=== PATIENT | female | born 1965 | race Caucasian/White ===

== ENCOUNTER 2020-08-06 11:57 | Emergency (ER) | payer BC, SELFPAY ==
[2020-08-06 12:07] VITALS: BP 133/75; PULSE 89; RESP 16; TEMP 36.6; O2SAT 99
--- NOTE | 2020-08-06 12:38 | ED.EAR ---
HPI - Ear Problem General Chief complaint: Ear Stated complaint: EARACHE Source: patient and RN notes reviewed Limitations: no limitations History of Present Illness HPI Narrative: The patient, who is a non-smoker/social drinker, presents with about 1/2-week history of left ear discomfort. Patient notes the onset of chills without fever, lightheadedness, lack of energy and left ear fullness. No fever, loss of taste/smell, sneezing/wheezing, sick family, CP recent travel, S OB, vertigo, tinnitus, hearing loss. Related Data Home Medications Medication Instructions Recorded Confirmed L norgest/E estradiol-E estrad 1 tablet PO DAILY 09/08/19 08/06/20 0.10 mg-20 mcg (84)/10 mcg(7) tabs,3mos albuterol sulfate 90 mcg/actuation 2 inhalation INHALATION Q4-6H gm 09/08/19 aerosol inhaler famotidine 40 mg PO DAILY 08/06/20 08/06/20 sertraline 200 mg PO HS 08/06/20 Allergies Allergy/AdvReac Type Severity Reaction Status Date / Time erythromycin base AdvReac Intermediate IRRITATES Verified 08/06/20 12:04 STOMACH Review of Systems Review of Systems: Narrative: General/Constitutional: No weight loss,fever Eyes: N0: Redness,discharge Ears/Nose/Throat: No: Epistaxis,ear discharge Respiratory: Denies: Hemoptysis Gastrointestinal: No Vomiting, Bleeding-rectal Skin: No Lumps, eruption Neurologic: No Focal Weakness,Sz Hematologic: Denies: Petechiae/Purpura Psychiatric: No: Suicida ideationl All Other Systems: Reviewed and Negative PENDING SALE TO [facility] Past Medical History Medical History (Updated 08/06/20 @ 12:43 by Nav Feliciano MD) Anxiety Benign familial tremor Endometriosis GERD without esophagitis IBS (irritable bowel syndrome) Migraine Reactive airway disease Family History Family History (Updated 06/10/14 @ 07:13 by DOCTOR UNKNOWN) Father Depression Family history of sleep apnea Grandparent Hypertension Cerebrovascular accident Family history of Parkinson's disease Family history of lung cancer Family history of dementia Family history of irritable bowel syndrome Mother Family history of arthritis Sibling Family history of irritable bowel syndrome Social History Social History Smoking status: Never smoker Alcohol intake: current Comments At time of signature, agree with nursing past medical, surgical, social and family history. There is no relevant family history pertinent to the presenting complaint Exam Narrative: Exam Narrative: General Appearance: Well appearing, , Conjunctiva clear Ears: Auditory canal normal, TM normal Nose: no rhinorrhea, Mucousal erythema Mouth/Throat: MM moist, Uvula midline, no pharyngeal erythema Neck: Supple, No adenopathy Respiratory: No respiratory distress, Breath sounds equal, Clear to auscultation Cardiovascular: RRR, No JVD Musculoskeletal: Non tender, Normal strength Skin: Warm, Dry Neurological: A&O x3, Normal affect-sl shaky/ anxious Course Vital Signs Vital signs: Vital Signs Temperature 97.8 F 08/06/20 12:07 Pulse Rate 89 08/06/20 12:07 Respiratory Rate 16 08/06/20 12:07 Blood Pressure 133/75 08/06/20 12:07 Pulse Oximetry 99 08/06/20 12:07 Temperature 97.8 F 08/06/20 12:07 Pulse Rate 89 08/06/20 12:07 Respiratory Rate 16 08/06/20 12:07 Blood Pressure 133/75 08/06/20 12:07 Pulse Oximetry 99 08/06/20 12:07 Medical Decision Making Vital Signs Vital Signs: Vital Signs Temperature 97.8 F 08/06/20 12:07 Pulse Rate 89 08/06/20 12:07 Respiratory Rate 16 08/06/20 12:07 Blood Pressure 133/75 08/06/20 12:07 Pulse Oximetry 99 08/06/20 12:07 Temperature 97.8 F 08/06/20 12:07 Pulse Rate 89 08/06/20 12:07 Respiratory Rate 16 08/06/20 12:07 Blood Pressure 133/75 08/06/20 12:07 Pulse Oximetry 99 08/06/20 12:07 Discharge Plan Discharge Clinical Impression: Otalgia, left ear Patient Disposition: Home, Self-Care Conditio
== END 2020-08-06 12:46 | disposition home or self-care (01) ==
PROVIDERS: Emergency Provider Emergency Medicine; PCP Nurse Practitioner Family
DX: H92.02 Otalgia, left ear (principal); K21.9 Gastro-esophageal reflux disease without esophagitis; J45.909 Unspecified asthma, uncomplicated; F41.9 Anxiety disorder, unspecified
CPT/HCPCS: 99213; G0463

== ENCOUNTER 2020-08-06 12:45 | Outpatient (NON) | payer BC, SELFPAY ==
[2020-08-06 21:05] LABS: SARS-CoV-2 RNA PCR Negative
== END 2020-08-06 12:46 ==
LOC: ANHCOVIDDT 12:46
PROVIDERS: PCP Nurse Practitioner Family; Visit Provider Emergency Medicine
DX: Z20.828 Contact with and (suspected) exposure to other viral communicable diseases (principal); R68.83 Chills (without fever)
CPT/HCPCS: 87635; C9803; U0003

== ENCOUNTER 2022-02-17 11:56 | Emergency (ER) | payer BC, SELFPAY ==
[2022-02-17 12:03] VITALS: BP 129/81; PULSE 63; RESP 16; TEMP 36.8; O2SAT 99
--- NOTE | 2022-02-17 12:17 | ED.EAR ---
HPI - Ear Problem General Chief complaint: Ear Stated complaint: ear inf Time Seen by Provider: 02/17/22 12:17 Source: patient Mode of arrival: ambulatory Limitations: no limitations History of Present Illness HPI Narrative: 56 y/o female presented for c/o right ear pain x2 days. Endorses she was told she had fluid behind the ear 5 days ago when seen by her PCP, was advised on [id number] treatments Zyrtec, Mucinex, Flonase, and Benadryl. She has been taking these as directed, but has been out of Flonase for about 2 days. Endorses dizziness with raising up from a laying position or turning her head too quickly. She denies tinnitus,ear drainage, sore throat, fevers or chills. MD Complaint: ear pain Related Data Home Medications Medication Instructions Recorded Confirmed albuterol sulfate 90 mcg/actuation 2 inhalation INHALATION Q4-6H gm 09/08/19 02/13/22 aerosol inhaler famotidine 40 mg PO DAILY 08/06/20 02/13/22 Allergies Allergy/AdvReac Type Severity Reaction Status Date / Time erythromycin base AdvReac Intermediate IRRITATES Verified 02/17/22 12:03 STOMACH Review of Systems Review of Systems: CONSTITUTIONAL: Denies malaise, chills, or fever. EYES: Denies visual changes, redness, or discharge. ENT: Reports ear pain CARDIOVASCULAR: Denies chest pain, palpitations, or edema. RESPIRATORY: Denies cough or dyspnea. GASTROINTESTINAL: Denies abdominal pain, nausea, vomiting, diarrhea SKIN: Denies rash or itching. MUSCULOSKELETAL: Denies myalgia. NEUROLOGIC: Denies headache. All systems reviewed & are unremarkable except as noted in HPI and below PMFSH Past Medical History Medical History (Updated 02/17/22 @ 12:25 by Ryanne Escalante APRN) Anxiety Benign familial tremor Endometriosis GERD without esophagitis Hyperlipidemia IBS (irritable bowel syndrome) Migraine Reactive airway disease Seasonal allergies Family History Family History Father Depression Family history of sleep apnea Grandparent Hypertension Cerebrovascular accident Family history of Parkinson's disease Family history of lung cancer Family history of dementia Family history of irritable bowel syndrome Mother Family history of arthritis Sibling Family history of irritable bowel syndrome Social History Social History Smoking status: Never smoker Alcohol intake: current Comments At time of signature, agree with nursing past medical, surgical, social and family history. There is no relevant family history pertinent to the presenting complaint Exam Narrative: GENERAL: Well-appearing HEAD: Normocephalic EYES: conjunctivae clear ENT: Nares clear. Mucous membranes moist. TM pearly whalen with dull light reflex bilaterally; right canal erythematous with mild swelling, no tragal tenderness. Oropharynx not erythematous without lesions and without exudate, no drooling, no hoarseness, no trismus, uvula midline. NECK: Supple. No lymphadenopathy CHEST: Clear to auscultation, breath sounds equal. No wheezing, rhonchi, rales, or stridor. No respiratory distress, speaks in full sentences. HEART: Regular rate and rhythm. No murmur heard. SKIN: Warm, dry, no rash. NEURO: Alert and oriented x3. PSYCH: Normal mood and affect Course Course Emergency Course: Patient is aware of diagnosis, understands and agrees to treatment plan. Anticipatory guidance given. Patient agrees to follow-up as directed and is aware of reasons to seek care at the emergency department. Portions of this record may have been created with voice recognition software Level of Care: Express Care Visit Vital Signs Vital signs: Vital Signs Temperature 98.2 F 02/17/22 12:03 Pulse Rate 63 02/17/22 12:03 Respiratory Rate 16 02/17/22 12:03 Blood Pressure 129/81 02/17/22 12:03 Pulse Oximetry 99 02/17/22 12:03 Temperature 98.
== END 2022-02-17 12:28 | disposition home or self-care (01) ==
PROVIDERS: Emergency Provider Nurse Practitioner Family; PCP Family Medicine
DX: H92.01 Otalgia, right ear (principal); E78.5 Hyperlipidemia, unspecified; F41.9 Anxiety disorder, unspecified
CPT/HCPCS: 99213; G0463

== ENCOUNTER 2024-06-05 10:36 | Emergency (ER) | payer BC, SELFPAY ==
[2024-06-05 10:45] VITALS: BP 148/90; PULSE 72; RESP 16; TEMP 36.5; O2SAT 99
--- NOTE | 2024-06-05 10:59 | ED.URI ---
HPI - URI/Sore Throat General Chief Complaint: Upper Respiratory Infection Stated Complaint: Lightheaded/Back Pain Time Seen by Provider: 06/05/24 10:59 Source: patient, RN notes reviewed and old records reviewed Mode of arrival: ambulatory Limitations: no limitations History of Present Illness HPI Narrative: 58-year-old female to Express Care for complaint cough, nasal drainage, generalized myalgias, fatigue and lower left back discomfort you for nearly 2 days. Patient states currently has COVID. Patient reports taking 5 COVID tests at home that were negative with the last one being this morning. Patient denies fever, nausea, vomiting, bowel changes, urinary changes, headache, dizziness. Patient hypertensive in triage. Patient resting in exam room, appears acutely ill. Patient able to tolerate fluids by mouth. Respirations even and nonlabored. Patient no acute distress. Related Data Home Medications Medication Instructions Recorded Confirmed famotidine 40 mg tablet 40 mg PO DAILY 08/06/20 06/05/24 cetirizine 10 mg tablet (Zyrtec) 10 mg PO DAILY PRN ALLERGIES 03/29/22 06/05/24 Allergies Allergy/AdvReac Type Severity Reaction Status Date / Time erythromycin base AdvReac Intermediate IRRITATES Verified 06/05/24 10:53 STOMACH Review of Systems Review of Systems: All systems reviewed & are unremarkable except as noted in HPI and below Constitutional: Constitutional: Reports as per HPI, Reports body ache(s), Reports excessive sweating and Reports fatigue Eyes: Eyes: Reports no additional eye complaints ENT: Reports as per HPI and Reports nasal discharge Cardiovascular: Cardiovascular: Reports no additional cardiovascular complaints, Denies chest pain and Denies dyspnea Respiratory: Respiratory: Reports no additional respiratory complaints, Denies cough and Denies dyspnea Genitourinary: Genitourinary: Reports no additional female genitourinary complaints Musculoskeletal: Musculoskeletal: Reports as per HPI, Reports back pain (lower left with palpation), Denies muscle weakness, Denies neck pain, Denies numbness, Denies stiffness and Denies tingling Neurologic: Reports system reviewed and no additional complaints, except as documented Psychiatric: Psychiatric: Reports no additional psychiatric complaints PMFSH Past Medical History Medical History Anxiety Benign familial tremor Endometriosis GERD without esophagitis Hyperlipidemia IBS (irritable bowel syndrome) Migraine Reactive airway disease Seasonal allergies Family History Family History Father Depression Family history of sleep apnea Cardiac pacemaker Grandparent Hypertension Cerebrovascular accident Family history of Parkinson's disease Family history of lung cancer Family history of dementia Family history of irritable bowel syndrome Mother Family history of arthritis Sibling Family history of irritable bowel syndrome Social History Social History Social History: Caffeine-coffee Smoking status: Never smoker Alcohol intake: current Drinks per week: 14 Alcohol use details: wine beer Substance use: never Substance use type: does not use Do You Feel Safe in your Home?: Yes Lack of Transportation: No Lack of Food: Sometimes True Current Housing: I Have Housing Concerned About Future Housing: No Difficulty Paying Gas/Electric Bills: No Difficulty Paying for Meds: No Currently Unemployed: No Education: Master's Degree or Higher Difficulty w/ Childcare or Family Care: No Living arrangements: with family Occupation/Education: occupation Gender identity (if verbalized by the patient): Female Agree to blood products: Yes Comments At the time of my signature, I reviewed and agree with the nursing past
[2024-06-05 11:32] LABS: EDSTREPNEGPOS1 Negative
== END 2024-06-05 11:42 | disposition home or self-care (01) ==
PROVIDERS: Emergency Provider Nurse Practitioner Family; PCP Family Medicine
DX: J02.9 Acute pharyngitis, unspecified (principal); K21.9 Gastro-esophageal reflux disease without esophagitis; E78.5 Hyperlipidemia, unspecified; J45.909 Unspecified asthma, uncomplicated; N80.9 Endometriosis, unspecified
CPT/HCPCS: 87081; 87880; 99213; G0463

== ENCOUNTER 2025-02-22 10:20 | Outpatient (CLI) | payer BC, SELFPAY ==
--- NOTE | ~2025-02-22 | XR_ITS ---
3 VIEWS LUMBAR SPINE Ordering provider: Heath Bernstein MD History: . M54.41 - Lumbago with sciatica, right side . Comparison: None. FINDINGS: VERTEBRAL BODIES: No visible fracture or subluxation. Mild degenerative changes. DISK SPACES: Normal. SOFT TISSUES: Normal. Loss of lordosis which may indicate muscle spasm. IMPRESSION: No acute osseous abnormality lumbar spine. Reviewed, dictated and finalized at location A.
--- NOTE | ~2025-02-22 | XR_ITS ---
XR cervical spine 4-5V Ordering provider: Heath Bernstein MD History: . M54.2 - Cervicalgia . Comparison: None. FINDINGS: VERTEBRAL BODIES: Normal height and alignment. No visible fracture or subluxation. The dens is intact . DISK SPACES: Narrowing of the disc C5-C6 and C6-C7. Uncovertebral joint osteoarthritic changes seen a t the 2 levels. PARASPINOUS SOFT TISSUES: No prevertebral soft tissue swelling. IMPRESSION: No acute osseous abnormality cervical spine. Multilevel degenerative disc disease. Reviewed, dictated and finalized at location A.
== END 2025-02-22 10:21 | disposition home or self-care (01) ==
LOC: GOSHIMG 10:21
PROVIDERS: PCP Family Medicine; Visit Provider Family Medicine
DX: M50.322 Other cervical disc degeneration at C5-C6 level (principal); M50.323 Other cervical disc degeneration at C6-C7 level; M54.41 Lumbago with sciatica, right side
CPT/HCPCS: 72050; 72110

== ENCOUNTER 2025-04-30 08:00 | Outpatient (RCR) | payer BC, SELFPAY ==
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
--- NOTE | 2025-04-02 09:55 | OPREHPOC ---
Outpatient Therapy Plan of Care This is a Multidisciplinary Plan of Care that may contain components documented by all disciplines (PT, OT, and ST.) PT Problem 1 PT Problem #1 Knowledge Deficit PT Goal 1 Goal / Goal Update 1. Patient to demonstrate independence with HEP for improved self-reliance of symptom management. Target Visit 8 PT Problem 2 PT Problem #2 Pain PT Goal 1 Goal / Goal Update 1. Patient to decrease subjective reports of pain to <2/10 for improved ADL tolerance. 2. Patient to report an improvement in radiating symptoms by 50% to increase ability to perform ADLs. (Both cervical and lumbar) Target Visit 8 PT Problem 3 PT Problem #3 Impaired Range of Motion PT Goal 1 Goal / Goal Update 1. Patient to demonstrate an increase of cervical rotation active range of motion to 60 degrees teresa to improve functional ROM. Target Visit 8 PT Problem 4 PT Problem #4 Impaired Strength PT Goal 1 Goal / Goal Update 1. Pt will display an increase in hip strength to 4+/5 grossly to show advancements in hip stability . Target Visit 8 Progress Met
--- NOTE | 2025-04-30 08:43 | PTOPDC ---
Assessment and note entered by Michael Keys PT Evaluation Information Assessment Status Discharge Diagnosis cervical pain, low back and RLE pain ICD-10 Condition Codes (PT) Cervicalgia M54.2,Pain in low back M54.50, Radiculopathy, lumbar region M54.16 Onset chronic Subjective Information Pt states she was feeling better overall in terms of the neck and low back and just has mild stiffness. However, she states now she has a sharp pain in her mid back that radiates into her left shoulder blade. She notes it feels like a pinched nerve. Pt states she plans to continue HEP to reduce stiffness and plans to seek further health care legal assistant for the mid back pain. Reported Pain Level Pain Score 0,0: Self Report Assessment PT Clinical Summary Patient's low back pain and cervical radiculopathy has improved overall as evidenced by advancements in symptoms, mobility, strength, and overall functional use of the extremity. New symptoms in the thoracic spine have arose, pt believes she will be able to manage symptoms with health care legal assistant and massage. Patient has met therapy goals and is pleased with progress made towards the remaining goals. Patient to discharge from physical therapy this date and continue with updated home exercise program as instructed. Patient to contact physical therapist or primary care provider if questions or concerns arise. Plan of Care PT Services Indicated No
== END 2025-04-30 09:22 | disposition home or self-care (01) ==
LOC: ANHGOSHPT 08:00
PROVIDERS: PCP Family Medicine; Visit Provider Family Medicine
DX: M54.41 Lumbago with sciatica, right side (principal); M54.2 Cervicalgia
CPT/HCPCS: 97110; 97140; 97161

== ENCOUNTER 2025-06-28 10:16 | Emergency (ER) | payer BC, SELFPAY ==
--- NOTE | ~2025-06-28 | XR_ITS ---
Examination: XR chest 2V Clinical History: dizzy, cough, congestion x 1 week Comparison: None Technique: PA and Lateral Findings: Cardiomediastinal silhouette normal size and configuration. Lungs clear. No acute bony abnormality. IMPRESSION: 1. No acute cardiopulmonary findings. Reviewed, dictated and finalized at location R.
--- NOTE | 2025-06-28 10:20 | ECG_ITS ---
Test Date: 2025-06-28 10:27:39 Measurements Intervals [place] Rate: 61 P: 37 [place]: 159 QRS: 51 QRSD: 90 T: 24 QT: 385 QTc: 389 Interpretive Statements SINUS RHYTHM CANNOT RULE OUT INFERIOR MYOCARDIAL INFARCTION, AGE INDETERMINATE ABNORMAL ECG No previous ECG available for comparison Electronically Signed On 06-28-2025 11:19:12 CDT by Nav Stokes M.D.
[2025-06-28 10:24] VITALS: BP 140/80; PULSE 66; RESP 16; TEMP 36.7; O2SAT 99
--- NOTE | 2025-06-28 10:29 | ED_ITS ---
HPI - Dizziness General Chief Complaint: Dizziness Stated Complaint: Dizzy Time Seen by Provider: 06/28/25 11:10 Source: patient and RN notes reviewed Mode of arrival: ambulatory Limitations: no limitations History of Present Illness HPI Narrative: 59-year-old female presents Express Care complaining of dizziness and lightheadedness of this morning. Patient stated over the weekend she has been dealing with upper respiratory symptoms states she has got a cough, congestion, runny nose. Patient took a dose of prednisone that she had left over over the weekend felt better over the weekend. Today she woke up with worsening congestion, feeling lightheaded, generalized fatigue, and cough. Patient denies any loss of consciousness, headache, vision changes, nausea, vomiting, focal weakness, slurred speech, chest pains, difficulty breathing, abdominal pain, diarrhea, or any other symptoms. Patient has a history hand tremors and takes propranolol for it. Patient denies any significant past medical history. Related Data Home Medications ?Medication ?Instructions ?Recorded ?Confirmed ?Last Taken ?Type famotidine 40 mg tablet 40 mg PO DAILY 08/06/2006/14 Unknown History cetirizine 10 mg tablet (Zyrtec) 10 mg PO DAILY ALLERG IES 08/24/24 02/22/25 Unknown History sertraline 100 mg tablet 200 mg PO QHS PRN UNKNOWN 06/28/25 Unknown History cholecalciferol (vitamin D3) 1,250 06/28/25 Unknown History mcg (50,000 unit) capsule Allergies Allergy/AdvReac Type Severity Reaction Status Date / Time erythromycin base AdvReac Intermediate IRRITATES Verified 06/28/25 10:40 STOMACH Review of Systems Review of Systems: CONSTITUTIONAL: Denies fever, chills, or sweats. Positive for fatigue. EYES: Denies visual changes, redness, or discharge. ENT: Denies rhinorrhea, congestion, sore throat, or otalgia. CARDIOVASCULAR: Denies chest pain, palpitations, or edema. Positive for dizziness and lightheadedness. RESPIRATORY: Positive for cough. Negative for wheezing or dyspnea. GASTROINTESTINAL: Denies abdominal pain, nausea, vomiting, or diarrhea. GENITOURINARY: Denies dysuria or hematuria. SKIN: Denies rash or itching. MUSCULOSKELETAL: Denies back pain, joint pain, or myalgia. NEUROLOGIC: Denies headache, numbness, loss of consciousness, focal weakness, slurred speech, facial droop, or weakness. PSYCHIATRIC: Denies anxiety or depression. All other systems reviewed are negative, except as documented in HPI. [facility] Past Medical History Medical History Vitamin D deficiency Low back pain with right-sided sciatica Heart murmur Vertigo Seasonal allergies Hyperlipidemia GERD without esophagitis Endometriosis Migraine Reactive airway disease Anxiety Benign familial tremor Surgical History Surgical History History of tonsillectomy (~1982) History of D&C (~1998) for endometriosis History of (~10/2004) Ruptured tubal of left fallopian tube (~2001) Family History Family History Father Depression Family history of sleep apnea Cardiac pacemaker Grandparent Hypertension Cerebrovascular accident Family history of Parkinson's disease Family history of lung cancer Family history of dementia Family history of irritable bowel syndrome Mother Family history of arthritis Sibling Family history of irritable bowel syndrome Social History Social History Social History: Caffeine-coffee Smoking status: Never smoker Alcohol intake: current Drinks per week: 14 Alcohol use details: wine beer Substance use: never Substance use type: does not use Do You Feel Safe in your Home?: Yes Lack of Transportation: No Lack of Food: Sometimes True Current Housing: I Have Housing Concerned About Future Housing: No Difficulty Paying Gas/Electric Bills: No Difficulty Paying for Meds: No Currently Unemployed: No Education: Master's Degree or Higher Difficulty w/ Childcare or Family Care: No Living arrangements: with family Occupation/Education: occupation Gender identity (if verbalized by the patient): Female Agree to blood products: Yes Comments At the time of my signature, I reviewed and agree with the nursing past medical, surgical, social, and family history. There is no relevant family history pertinent to the patient complaint. Exam Narrative: GENERAL: This is a well-nourished, well-developed adult, in no apparent distress. They are non ill-appearing, nontoxic appearing. HEAD: normocephalic, atraumatic. EYES: Sclera clear/white. Conjunctiva normal. Vision is grossly intact. Extraocular movements intact. Pupils PERRLA. No nystagmus. EARS: External ears normal, auditory canals clear and without drainage, TMs normal without perforation. Hearing grossly intact. NOSE: External nose normal with no obvious nasal discharge, nasal turbinates erythematous, no rhinorrhea. THROAT: Mucous membranes moist, posterior pharynx boggy without erythema. Uvula midline. Postnasal drip present. NECK: Neck supple, non-tender without lymphadenopathy, masses or thyromegaly. CARDIOVASCULAR: Regular rate and rhythm without murmurs, gallops, or rubs. RESPIRATORY: Diminished lower lobes. Breath sounds equal bilaterally. No wheezes, rales, or rhonchi. SKIN: warm, Dry, intact with no suspicious lesions or rash, good texture and turgor. NEURO: awake, alert, and oriented to person, place and time. There were no obvious focal neurologic abnormalities. Cranial nerve 2-12 grossly intact. No pronator drift. Strength the 5/5 equal bilaterally. Arm strength 5/5 equal bilaterally. Strength 5/5 equal bilaterally. No limb ataxia. Slurred speech. No facial droop. Tongue is midline. Normal dorsiflexion and plantar flexion. Normal sensation. EXTREMITIES: No joint tenderness, effusion, or edema noted. BACK: Nontender without deformity. No CVA tenderness. Course Course Emergency Course: Portions of this record may have been created with voice recognition software Level of Care: Express Care Visit Vital Signs Vital signs: Vital Signs Temperature 98.1 F 06/28/25 10:24 Pulse Rate 66 06/28/25 10:24 Respiratory Rate 16 06/28/25 10:24 Blood Pressure 140/80 06/28/25 10:24 Pulse Oximetry 99 06/28/25 10:24 Temperature 98.1 F 06/28/25 10:24 Pulse Rate 59 L 06/28/25 11:30 Respiratory Rate 16 06/28/25 10:24 Blood Pressure 133/89 06/28/25 11:30 Pulse Oximetry 99 06/28/25 10:24 Reviewed MDM - Dizziness MDM Narrative Medical decision making narrative: EKG sinus rhythm without ischemic findings, no arrhythmia. Orthostatic vital signs are negative. NIH score 0. No concerning neurological findings on exam. Chest x-ray negative for any fractures or acute findings. Patient clinically having symptoms of upper respiratory infection, likely a sinusitis. Offered ER transfer for further evaluation and management, including possible lab work and further advanced imaging patient declined. Will go ahead and treat for sinusitis with Augmentin. Strict ER precautions discussed with patient especially for symptoms worsen, she loses consciousness, worsening dizziness, severe headaches, vision changes, one-sided weakness, facial drooping, slurred speech, confusion, chest pains, difficulty breathing, or any serious concerns. Discussed physical exam findings. Advised supportive measures and signs/symptoms to go to the ER. Pt is appropriate for outpt treatment and f/u. Differential Diagnosis Differential diagnosis: Likely orthostatic hypotension, cerebrovascular accident, acute vestibular neuronitis and other (Sinusitis, pneumonia, upper respiratory infection, viral illness) Imaging Data Radiologist's impression: ITS Impressions Chest X-Ray 06/28/25 11:46 IMPRESSION: 1. No acute cardiopulmonary findings. ECG Data EKG #1: ECG completion date: 06/28/25 ECG completion time: 10:27 EKG Interpretation: normal rate, sinus rhythm, no ectopy, no ST changes, normal QRS, normal QT, NL axis and no acute changes Critical Care Time Critical Care Time Critical Care Time: No Discharge Plan Discharge Clinical Impression: Dizziness Sinusitis Qualifiers: Sinusitis location: unspecified location Chronicity: acute Recurrence: non- recurrent Qualified Code(s): J01.90 - Acute sinusitis, unspecified Patient Disposition: Home Condition: Stable Instructions: Antibiotic Form, Sinusitis (ED) Additional Instructions: Your EKG is normal sinus rhythm. You orthostatics vital signs are normal today. Her chest x-ray is negative for acute cardiopulmonary findings. Take the antibiotics as directed and complete the course even if you start to feel better. You may use a Neti pot saline rinse 3 times a day with lukewarm distilled water You may take ibuprofen 600 mg to 800 mg every 6-8 hours. Do not exceed more than 800 mg of ibuprofen per dose. Do not exceed more than 3200 mg ibuprofen in a day. You may take up to 1000 mg Tylenol every 6-8 hours. Do not exceed 1000 mg per dose, do exceed more than 4000 mg of Tylenol in a day. Use a humidifier or vaporizer at night. Drink plenty of water. 8-10 glasses per day. Use flonase 2 times per day for 5 days then as needed Take mucinex 2 times per day and be sure to take with 8oz of water. Follow up with Primary provider in 3-5 days Please go to the ER if he develops any difficulty breathing, worsening symptoms, severe dizziness, you lose consciousness, slurred speech, severe headaches, vision changes, chest pain, or any other serious concerns Patient Language: Bahamian Prescriptions: New amoxicillin-pot clavulanate 875-125 mg tablet 1 tablet PO Q12H 7 Days Qty: 14 0RF No Action famotidine 40 mg Tablet 40 mg PO DAILY cholecalciferol (vitamin D3) 1,250 mcg (50,000 unit) capsule cetirizine [Zyrtec] 10 mg tablet 10 mg PO DAILY cyclobenzaprine 5 mg tablet 5 mg PO TID PRN (Reason: muscle spasm) Qty: 30 1RF sertraline 100 mg tablet 200 mg PO QHS PRN (Reason: UNKNOWN) fluticasone propionate 50 mcg/actuation spray,suspension See Rx Instructions .ROUTE .COMPLEX Qty: 9.9 11RF Dose Instruction: USE 1 SPRAY NASALLY DAILY Rx Instructions: USE 1 SPRAY NASALLY DAILY cholecalciferol (vitamin D3) 1,250 mcg (50,000 unit) tablet 1,250 mcg PO WEEKLY Qty: 12 1RF propranolol 10 mg tablet 10 mg PO BID Qty: 180 1RF atorvastatin 20 mg tablet 20 mg PO QHS Qty: 90 1RF Follow-up/Referrals: Heath Bernstein MD [Primary Care Provider, Family Practice] Time of Disposition: 12:04
[2025-06-28 11:23] VITALS: BP 131/67; BP 134/83; PULSE 57; PULSE 64
[2025-06-28 11:30] VITALS: BP 133/89; PULSE 59
== END 2025-06-28 12:08 | disposition home or self-care (01) ==
PROVIDERS: PCP Family Medicine
DX: R42 Dizziness and giddiness (principal); J01.90 Acute sinusitis, unspecified; E78.5 Hyperlipidemia, unspecified; K21.9 Gastro-esophageal reflux disease without esophagitis; N80.9 Endometriosis, unspecified; J45.909 Unspecified asthma, uncomplicated; R01.1 Cardiac murmur, unspecified; E55.9 Vitamin D deficiency, unspecified; F41.9 Anxiety disorder, unspecified
CPT/HCPCS: 71046; 93005; 99213; G0463

== ENCOUNTER 2025-07-03 05:45 | Emergency (ER) | payer BC, SELFPAY ==
--- OUTSIDE RECORDS SUMMARY | 2025-07-03 05:49 | XMS_ITS | Encounter Summary ---
Author Organization [employer] [facility] Address [address] [place] [address] Care Team Providers Care Adjusto Writer Operator Name Role Phone Teresita Cronin MD Primary Care Provider [phone] Encounter Details Date Type Department Care Team (Late st Contact Info) Description 09/05/2004 Outpatient Historical [facility] Maternal and Ground Floor [address] [phone] Jhoan Casillas MD [address] [place] [address] Social History Tobacco Use Types Packs/Day Years Used Date Smoking Tobacco: Never Assessed Comments Unknown Sex and Gender Information Value Date Recorded Sex Assigned at Not on file 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
--- OUTSIDE RECORDS SUMMARY | 2025-07-03 05:49 | XMS_ITS | Encounter Summary ---
Author Organization [facility] Address [address] [place] [address] Care Team Providers Care Metal Finisher Name Role Phone Teresita Cronin MD Primary Care Provider [phone] Encounter Details Date Type Department Care Team (Late st Contact Info) Description 10/03/2004 Outpatient Historical [facility] Maternal and Ground Floor [address] [place] [phone] Jhoan Casillas MD [address] [place] [address] Social History Tobacco Use Types Packs/Day Years Used Date Smoking Tobacco: Never Assessed Comments Unknown Sex and Gender Information Value Date Recorded Sex Assigned at Not on file 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
--- OUTSIDE RECORDS SUMMARY | 2025-07-03 05:49 | XMS_ITS | Encounter Summary ---
Author Organization [employer] Address 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
--- OUTSIDE RECORDS SUMMARY | 2025-07-03 05:49 | XMS_ITS | Encounter Summary ---
Author Organization [employer] Address 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 Gender Identity Not on file Sexual Orientation Not on file documented as of this encounter Plan of Treatment Not on file documented as of this encounter Procedures Procedure Name Priority Date/Time Associated Diagnosis Comments HEMOGLOBIN AND HEMATOCRIT Routine 10/27/2004 7:05 AM INSURANCE MARKETING REP CBC WITH DIFFERENTIAL Routine 10/24/2004 2:43 PM INSURANCE MARKETING REP CBC WITH DIFFERENTIAL Routine 10/24/2004 2:43 PM INSURANCE MARKETING REP URINALYSIS W/REFLEX MICROSCOPIC Routine 10/24/2004 2:43 PM INSURANCE MARKETING REP documented in this encounter Results * (ABNORMAL) HEMOGLOBIN AND HEMATOCRIT (10/27/2004 7:05 AM INSURANCE MARKETING REP) Pathologist [facility] HEMOGLOBIN 8.0(L) 11.8 - 14.8 g/dL INTERFACE SYSTEM HEMATOCRIT 23.7(AA) 35.5 - 44.0 % INTERFACE SYSTEM Comment: Results called to compa at 10/27/2004 8:00 AM and read back verified. Verified by repeat analysis. 10/27/2004 7:05 AM INSURANCE MARKETING REP Trini Carmona MD HEMATOLOGY ORDERABLES Final Result Performing Organization Address [facility] de Phone Number INTERFACE SYSTEM Refer to clinic/hospital department * CBC WITH DIFFERENTIAL (10/24/2004 2:43 PM INSURANCE MARKETING REP) Pathologist [facility] NEUTROPHILS 69 45 - 70 % INTERFAC E SYSTEM LYMPHOCYTES 20 16 - 45 % INTERFAC E SYSTEM MONOCYTES 10 3 - 13 % INTERFACE SYSTEM EOSINOPHILS 0 0 - 7 % INTERFAC E SYSTEM BASOPHILS 0 0 - 2 % INTERFACE SYSTEM NEUTROPHIL ABSOLUTE 3.67 1.90 - 7.00 K/uL INTERFACE SYSTEM LYMPHOCYTE ABSOLUTE 1.06 0.70 - 4.50 K/uL INTERFACE SYSTEM MONOCYTE ABSOLUTE 0.55 0.10 - 1.30 K/uL INTERFACE SYSTEM EOSINOPHIL ABSOLUTE 0.02 0.00 - 0.70 K/uL INTERFACE SYSTEM BASOPHILS ABSOLUTE 0.00 0.00 - 0.20 K/uL INTERFACE SYSTEM 10/24/2004 2:43 PM INSURANCE MARKETING REP Trini Carmona MD HEMATOLOGY ORDERABLES Final Result Performing Organization Address [facility] Phone Number INTERFACE SYSTEM Refer to clinic/hospital department * (ABNORMAL) CBC WITH DIFFERENTIAL (10/24/2004 2:43 PM INSURANCE MARKETING REP) Pathologist [facility] WBC 5.3 4.0 - 9.8 K/uL INTERFACE SYSTEM RBC 3.59(L) 3.90 - 4.90 M/uL INTERFACE SYSTEM HEMOGLOBIN 11.5(L) 11.8 - 14.8 g/dL INTERFACE SYSTEM HEMATOCRIT 34.5(L) 35.5 - 44.0 % INTERFACE SYSTEM MCV 96.1 82.0 - 99.0 fL INTERFACE SYSTEM MCH 32.0 27.2 - 32.6 pg INTERFACE SYSTEM MCHC 33.3 31.5 - 35.5 % INTERFACE SYSTEM RDW 12.8 11.5 - 14.5 % INTERFACE SYSTEM RDW-STDEV 45.0 37.1 - 48.7 fL INTERFACE SYSTEM PLATELETS 131(L) 140 - 350 K/uL INTERFACE SYSTEM MPV 10.7 9.3 - 12.4 fL INTERFACE SYSTEM 10/24/2004 2:43 PM INSURANCE MARKETING REP Trini Carmona MD HEMATOLOGY ORDERABLES Final Result INTERFACE SYSTEM Refer to clinic/hospital department * (ABNORMAL) URINALYSIS (10/24/2004 2:43 PM INSURANCE MARKETING REP) COLOR UA Yellow INTERFACE SYSTEM CLARITY UA Clear Clear INTERFACE SYSTEM SPECIFIC GRAVITY UA 1.010 1.001 - 1.035 INTERFACE SYSTEM PH UA 7.0 5.0 - 8.0 INTERFACE SYSTEM LEUKOCYTE ESTERASE UA 3+ Negative INTERFACE SYSTEM NITRITE UA Negative Negative INTERFACE SYSTEM PROTEIN UA Negative Negative INTERFACE SYSTEM GLUCOSE UA Negative Negative INTERFACE SYSTEM KETONES UA Negative Negative INTERFACE SYSTEM UROBILINOGEN UA <1 <1 EU INTE RFACE SYSTEM BILIRUBIN UA Negative Negative INTERFA CE SYSTEM BLOOD UA Negative Negative INTERFACE SYSTEM WBC UA 5 0 - 5 /HPF INTERFACE SYSTEM RBC UA 1 0 - 4 /HPF INTERFACE SYSTEM BACTERIA UA 1+(A) None Seen /HPF INTERFACE SYSTEM EPITHELIAL CELLS, URINE 2-5 /HPF INTERFACE SYSTEM 10/24/2004 2:43 PM INSURANCE MARKETING REP Trini Carmona MD URINE ORDERABLES Final Resu lt INTERFACE SYSTEM Refer to clinic/hospital department documented in this encounter Visit Diagnoses Diagnosis Multiple gestation with malpresentation of one fetus or more, delivered- Primary documented in this encounter Care Teams Aerial Photogrammetrist Relationship Specialty Start Date End Date Teresita Cronin MD [address] [place] [address] PCP - General 09/30/15 documented as of this encounter
--- OUTSIDE RECORDS SUMMARY | 2025-07-03 05:49 | XMS_ITS | Encounter Summary ---
Author Organization [employer] [facility] Address [address] [place] [address] Care Team Providers Care Candy Department Manager Name Role Phone Teresita Cronin MD Primary Care Provider [phone] Encounter Details Date Type Department Care Team (Late st Contact Info) Description 10/24/2004 Outpatient Historical [facility] Maternal and Ground Floor [address] [place] [phone] Jhoan Casillas MD [address] [facility] [address] [place] [address] Social History Tobacco Use Types Packs/Day Years Used Date Smoking Tobacco: Never Assessed Comments Unknown Sex and Gender Information Value Date Recorded Sex Assigned at Not on file 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
--- OUTSIDE RECORDS SUMMARY | 2025-07-03 05:49 | XMS_ITS | Encounter Summary ---
Author Organization [employer] Address 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
--- OUTSIDE RECORDS SUMMARY | 2025-07-03 05:49 | XMS_ITS | Encounter Summary ---
Author Organization [facility] Address [address] [place] [address] Care Team Providers Care Supervisor Packing Room Name Role Phone Teresita Cronin MD Primary Care Provider [phone] Encounter Details Date Type Department Care Team (Late st Contact Info) Description 06/06/[address] 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
--- OUTSIDE RECORDS SUMMARY | 2025-07-03 05:49 | XMS_ITS | Clinical Summary ---
Author Organization [facility] Address [address] [place] [address] Care Team Providers Care Undercollar Baster Name Role Phone Reji Vasquez MD Primary Care Provider [phone] Source Comments [facility],non-owned Affiliates and Associated Physician Practices is amultiple site organization consisting of ambulatory clinics and hospital sitesin [place], [place], [place] and [place]. This disclosure is being madepursuant to the Care Everywhere program and may not contain all information available regarding this patient. Last updated 18.[facility] [employer] Allergies Active Allergy Reactions Criticality Noted Date Comments Erythromycin Nausea and/or Vomiting 2016 Medications * Be aware that medications may not be up to date on this document. Alwaysverify current medications with the patient. fluticasone propionate (FLONASE) 50 MCG/ACT nasal spray 02/04/2017 Active sertraline (ZOLOFT) 100 MG tablet Take 2 (two) tablets by mouth once daily 03/11/2017 Active propranolol (INDERAL) 10 MG tablet Take 1 (one) tablet by mouth 2 times daily 01/30/2018 Active famotidine (PEPCID) 40 MG tablet Take 1 (one) tablet by mouth once daily Active albuterol HFA (Proventil; Ventolin; Proair) 108 (90 Base) MCG/ACT inhaler Inhale 2 (two) puffs by mouth every 6 hours as needed 10/19/2022 Active atorvastatin (Lipitor) 20 MG tablet Take 1 (one) tablet by mouth at bedtime 08/28/2023 Active Cholecalciferol 1.25 MG (98588 UT) Take 50,000 Units by mouth every 7 days (once a week) 01/04/2025 Active cyclobenzaprine (Flexeril) 5 MG tablet Take 1 (one) tablet by mouth every 8 hours as needed 08/24/2024 Active Active Problems Problem Noted Date Diagnosed Date Endometriosis Migraine GERD (gastroesophageal reflux disease) Immunizations Immunization Administration Dates Next Due INFLUENZA VACCINE, TRIV. (AF LURIA, FLUZONE TRIVALENT; 6MO+) (IIV3) 07/30/2014,07/14/2014,07/31/2013 FLU VACCINE TRI IIV3 SPLIT P F IM (FLUVIRIN) 08/20/2015,07/23/2012 INFLUENZA VACCINE, CELL CULT URE, QUADR. (FLUCELVAX QUADRIVALENT; 6MO+) (CCIIV4) 07/21/2022,08/05/2021,07/12/2020,2017 INFLUENZA VACCINE, QUADR. (F LUZONE; FLULAVAL; FLUARIX; AFLURIA QUADRIVALENT; 6MO+), 0.5 ML (IIV4) 08/04/2019 TDAP (7yrs+) 09/30/2013,09/13/2013 Zoster Hzv Vacc Recombinant Inj Im 09/24/2020, Family History Medical History Relation Name Comments CVA Maternal Grandfather Hypertension Maternal Grandfather Other - Cardiac Mother valve replac ement Relation Name Status Comments Father Alive Maternal Grandfather Maternal Grandmother Mother Alive Paternal Grandfather Paternal Grandmother Social History Tobacco Use Types Packs/Day Years Used Date Smoking Tobacco: Never Smokeless Tobacco: Never Tobacco Cessation:Counseling Given: Not Answered Alcohol Use Standard Drinks/Week Comments Yes 0 (1 standard drink = 0.6 oz pur e alcohol) AUDIT-C Answer Date Recorded Frequency of Alcohol Consumption Not on file 11/04/2019 Average Number of Drinks Not on file 020 Frequency of Binge Drinking Daily or almost donita y 11/04/2019 PHQ-2 Answer Date Recorded Patient Health Questionnaire-2 Score 0 02/25/2025 Comments No Sex and Gender Information Value Date Recorded Sex Assigned at Not on file Legal Sex Female 12:04 PM CDT Gender Identity Not on file Sexual Orientation Not on file Last Filed Vital Signs Vital Sign Reading Time Taken Comments Blood Pressure 127/79 02/25/2025 4:28 PM CDT Pulse 62 02/25/2025 4:28 PM CDT Temperature - - Respiratory Rate - - Oxygen Saturation - - Inhaled Oxygen Concentration - - Weight 89.8 kg (198 lb) 02/25/2025 4:28 PM CDT Height 157.5 cm (5' 2) 02/25/2025 4:28 PM CDT Body Mass Index 36.21 02/25/2025 4:28 PM CDT Plan of Treatment Health Maintenance Due Date Last Done Comments COLOGUARD (AGES 45-75) - COLON CA SCREENING 1967 COLON MONITORING 1967 COLONOSCOPY - COLON CA SCREENING 1967 CT COLONOGRAPHY - COLON CA SCREENING 1967 Colorectal Cancer Screening 1967 FIT - COLON CA SCREENING 1967 FLEX SIG - COLON CA SCREENING 1967 HIV SCREENING 1982 HEPATITIS C SCREENING 08/06/1985 HEPATITIS B VACCINE (1 of 3 - 19+ 3-dose series) 1986 PNEUMOCOCCAL VACCINE 50+ (1 of 1 - PCV) 2017 DTAP/TDAP/TD VACCINES (3 - Td or Tdap) 09/30/2023 09/30/2013, 09/13/2013 SCREENING FOR DIABETES 02/25/2025 COVID-19 VACCINE ( season) 2025 07/21/2022, 08/05/2021, 12/22/2020 INFLUENZA VACCINE (#1) 2025 , 08/05/2021, 07/12/2020, Additional history exists PAP with HPV 05/18/2026 05/18/2021, 03/05/2016 (Done Outside Per Report) MAMMOGRAM 08/27/2026 08/27/2024, 08/14, 08/27/2024, Additional history exists ZOSTER VACCINE Completed 09/24/2020, 07/12/2020 DEPRESSION SCREENING Completed 02/25/2025, 09/19/20 23 HIB VACCINE Aged Out No longer eligi ble based on patient's age to complete this topic HPV VACCINE Aged Out No longer eligi ble based on patient's age to complete this topic MENINGOCOCCAL (Group B) VACCINE SHARED DECISION-MAKING Aged Out No longer eligible based on patient's age to complete this topic MENINGOCOCCAL GROUPS A/C/Y/W VACCINE Aged Out No longer eligible based on patient's age to complete this topic Procedures Procedure Name Priority Date/Time Associated Diagnosis Comments MAMMOGRAM 08/27/2024 PAP IG LB+HPV APTIMA Routine 05/18/2021 2:53 PM CDT Well woman exam from Last 3 Months or Most Recently Relevant to Health Maintenance Results * MAMMOGRAM (08/27/2024) Anatomical Region Laterality Modality Other 08/27/2024 Narrative 08/27/2024 Ordered by an unspecified provider. us Scanned Document SCANNING ONLY Final Result * PAP IG LB+HPV APTIMA (05/18/2021 2:53 PM CDT) Diagnosis [facility] ACCOUNT BILL Comment:NEGATIVE FOR INTRAEP ITHELIAL LESION OR MALIGNANCY. Specimen Adequacy [facility] ACCOUNT BILL Comment: Satisfactory for evaluation. Endocervical and/or squamous metaplastic cells (endocervical component) are present. Clinician Provided ICD10 [facility] ACCOUNT BILL Comment:Z01.419 Performed by [facility] ACCOUNT BILL Comment:Gillian Traore, Cyto technologist (ASCP) Comment . [facility] ACCOUNT BILL Note [facility] ACCOUNT BILL Comment: The Pap smear is a screening test designed to aid in the detection of premalignant and malignant conditions of the uterine cervix. It is not a diagnostic procedure and should not be used as the sole means of detecting cervical cancer. Both false-positive and false-negative reports do occur. . IGLBP CPT Code Automation [facility] ACCOUNT BILL Comment: This liquid based ThinPrep(R) pap test was screened with the use of an image guided system. Human papillomavirus Aptima Negative Negative [facility] ACCOUNT BILL Comment: This nucleic acid amplification test detects fourteen high-risk HPV types (16,18,31,33,35,39,45,51,52,56,58,59,66,68) without differentiation. Pathology/Cytolog y PART OF UTERINE CERVIX / Unknown 05/18/2021 2:53 PM CDT 05/19/2021 Narrative [facility] ACCOUNT BILL - 05/22/2021 11:06 PM CDT No. 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
--- OUTSIDE RECORDS SUMMARY | 2025-07-03 05:49 | XMS_ITS | Encounter Summary ---
Author Organization [employer] Address [address] [place] [address] Care Team Providers Care Waste Collector Name Role Phone Teresita Cronin MD Primary Care Provider [phone] Encounter Details Date Type Department Care Team (Latest Contact Info) Description 07/11/2004 Outpatient Historical [facility] Jhoan Casillas MD [address] [place] [address] ELDER MULTIGRAVID-ANTEPART UM (Primary Dx) Social History Tobacco Use Types Packs/Day Years Used Date Smoking Tobacco: Never Assessed Comments Unknown Sex and Gender Information Value Date Recorded Sex Assigned at Not on file Legal Sex Female 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
--- OUTSIDE RECORDS SUMMARY | 2025-07-03 05:49 | XMS_ITS | Encounter Summary ---
Author Organization [facility] Address [address] [place] [address] Care Team Providers Care Paper Sales Manager Name Role Phone Teresita Cronin MD Primary Care Provider [phone] Encounter Details Date Type Department Care Team (Late st Contact Info) Description 11/16/2004 Outpatient Historical [facility] Jhoan Casillas MD [address] [place] [address] Social History Tobacco Use Types Packs/Day Years Used Date Smoking Tobacco: Never Assessed Comments Unknown Sex and Gender Information Value Date Recorded Sex Assigned at Not on file Legal Sex Female 5:11 AM RN POSTPARTUM Gender Identity Not on file Sexual Orientation Not on file documented as of this encounter Plan of Treatment Not on file documented as of this encounter Visit Diagnoses Not on filedocumented in this encounter Care Teams Paper Sales Manager Relationship Specialty Start Date End Date Teresita Cronin MD [address] [place] [address] PCP - General 09/30/15 documented as of this encounter
--- OUTSIDE RECORDS SUMMARY | 2025-07-03 05:49 | XMS_ITS | Encounter Summary ---
Author Organization [employer] Address [address] [place] [address] Care Team Providers Care Speech Pathologist Assistant Name Role Phone Teresita Cronin MD Primary Care Provider [phone] Encounter Details Date Type Department Care Team (Latest Contact Info) Description 08/12/2004 Outpatient Historical [facility] Jhoan Casillas MD [address] [place] [address] ELDER MULTIGRAVID-ANTEPART UM (Primary Dx) Social History Tobacco Use Types Packs/Day Years Used Date Smoking Tobacco: Never Assessed Comments Unknown Sex and Gender Information Value Date Recorded Sex Assigned at Not on file Legal Sex Female 5:11 AM 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
--- OUTSIDE RECORDS SUMMARY | 2025-07-03 05:49 | XMS_ITS | Encounter Summary ---
Author Organization [facility] Address [address] [place] [address] Care Team Providers Care Vp Cardiovascular Name Role Phone Teresita Cronin MD Primary Care Provider [phone] Encounter Details Date Type Department Care Team (Late st Contact Info) Description 10/11/2004 Outpatient Historical [facility] Maternal and Ground Floor [address] [place] [address] Dez Martínez MD NO ADDRESS ON FILE Social History Tobacco Use Types Packs/Day Years Used Date Smoking Tobacco: Never Assessed Comments Unknown Sex and Gender Information Value Date Recorded Sex Assigned at Not on file Legal Sex Female 5:11 AM DIRECTOR OF CRITICAL CARE Gender Identity Not on file Sexual Orientation Not on file documented as of this encounter Plan of Treatment Not on file documented as of this encounter Visit Diagnoses Not on filedocumented in this encounter Care Teams Vp Cardiovascular Relationship Specialty Start Date End Date Teresita Cronin MD [address] [place], [place] [id number] PCP - General 09/30/15 documented as of this encounter
--- OUTSIDE RECORDS SUMMARY | 2025-07-03 05:49 | XMS_ITS | Encounter Summary ---
Author Organization [facility] Address [address] [place] [address] Care Team Providers Care Fun House Attendant Name Role Phone Teresita Cronin MD Primary Care Provider [phone] Encounter Details Date Type Department Care Team (Late st Contact Info) Description 08/08/2004 Outpatient Historical [facility] Maternal and Ground Floor [address] [place] [address] Jhoan Casillas MD [id number] [place] [address] Social History Tobacco Use Types Packs/Day Years Used Date Smoking Tobacco: Never Assessed Comments Unknown Sex and Gender Information Value Date Recorded Sex Assigned at Not on file Legal Sex Female 5:11 AM 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
--- OUTSIDE RECORDS SUMMARY | 2025-07-03 05:49 | XMS_ITS | Encounter Summary ---
Author Organization [employer] Address [address] [place] [address] Care Team Providers Care Commercial Solar Sales Consultant Name Role Phone Teresita Cronin MD Primary Care Provider [phone] Encounter Details Date Type Department Care Team (Late st Contact Info) Description 11/19/2001 Inpatient Historical [facility], Trini Sosa MD [address] [place] [address] FEMALE INFERTILITY NOS (Primary Dx) Social History Tobacco Use Types Packs/Day Years Used Date Smoking Tobacco: Never Assessed Comments Unknown Sex and Gender Information Value Date Recorded Sex Assigned at Not on file Legal Sex Female 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
--- OUTSIDE RECORDS SUMMARY | 2025-07-03 05:49 | XMS_ITS | Encounter Summary ---
Author Organization [facility] Address [address] [place] [address] Care Team Providers Care Chemical Dependency Professional Name Role Phone Teresita Cronin MD Primary Care Provider [phone] Encounter Details Date Type Department Care Team (Late st Contact Info) Description 07/11/[address] [facility] Maternal and Ground Floor [address] [place] [address] Jhoan Casillas MD [address] [facility] [place] [address] Social History Tobacco Use Types Packs/Day Years Used Date Smoking Tobacco: Never Assessed Comments Unknown Sex and Gender Information Value Date Recorded Sex Assigned at Not on file Legal Sex Female 5:11 AM MEDICARE COMPLIANCE AUDITOR Gender Identity Not on file Sexual Orientation Not on file documented as of this encounter Plan of Treatment Not on file documented as of this encounter Visit Diagnoses Not on filedocumented in this encounter Care Teams Chemical Dependency Professional Relationship Specialty Start Date End Date Teresita Cronin MD [address] [place], [place] [phone] PCP - General 09/30/15 documented as of this encounter
--- OUTSIDE RECORDS SUMMARY | 2025-07-03 05:49 | XMS_ITS | Encounter Summary ---
Author Organization [facility] Address [address] [place] [address] Care Team Providers Care Code Machine Operator Name Role Phone Teresita Cronin MD Primary Care Provider [phone] Encounter Details Date Type Department Care Team (Late st Contact Info) Description 10/17/2004 Outpatient Historical [facility] Maternal and Ground Floor [address] [place] [address] Dez Martínez MD NO ADDRESS ON FILE Social History Tobacco Use Types Packs/Day Years Used Date Smoking Tobacco: Never Assessed Comments Unknown Sex and Gender Information Value Date Recorded Sex Assigned at Not on file Legal Sex Female 5:11 AM JAVA DEVELOPER ARCHITECT Gender Identity Not on file Sexual Orientation Not on file documented as of this encounter Plan of Treatment Not on file documented as of this encounter Visit Diagnoses Not on filedocumented in this encounter Care Teams Code Machine Operator Relationship Specialty Start Date End Date Teresita Cronin MD [address] [place], [place] [phone] PCP - General 09/30/15 documented as of this encounter
--- OUTSIDE RECORDS SUMMARY | 2025-07-03 05:49 | XMS_ITS | Encounter Summary ---
Author Organization [employer] Address [address] [place] [address] Care Team Providers Care Lacing Operator Name Role Phone Teresita Cronin MD Primary Care Provider [phone] Encounter Details Date Type Department Care Team (Latest Contact Info) Description 10/15/2004 Outpatient Historical [facility] Jhoan Casillas MD [address] [place] [address] ELDER MULTIGRAVID-ANTEPART UM (Primary Dx) Social History Tobacco Use Types Packs/Day Years Used Date Smoking Tobacco: Never Assessed Comments Unknown Sex and Gender Information Value Date Recorded Sex Assigned at Not on file Legal Sex Female 5:11 AM ADON Gender Identity Not on file Sexual Orientation Not on file documented as of this encounter Plan of Treatment Not on file documented as of this encounter Visit Diagnoses Diagnosis Elderly multigravida with antepartum condition or complication- Primary documented in this encounter Care Teams Lacing Operator Relationship Specialty Start Date End Date Teresita Cronin MD [address] [place] [address] PCP - General 09/30/15 documented as of this encounter
--- OUTSIDE RECORDS SUMMARY | 2025-07-03 05:49 | XMS_ITS | Clinical Summary ---
Author Organization [facility] Address [address] [place] [address] Care Team Providers Care Nurse Substance Abuse Name Role Phone Teresita Cronin MD Primary Care Provider [phone] Medications amoxicillin-cla vulanate (AUGMENTIN) 875-125 mg tablet TAKE ONE TABLET BY MOUTH TWICE DAILY FOR 7 DAYS. 14 Tablet 10/16/2022 4:51 PM OB/GYN NURSE 3 Active predniSONE (DELTASONE) 20 mg tablet Take 1 Tablet (20 mg) by mouth 2 times daily. 10 Tablet 10/16/2022 4:51 PM OB/GYN NURSE 3 Active albuterol sulfate 90 mcg/Actuation inhaler INHALE 2 PUFFS BY MOUTH EVERY 4-6 HOURS NEEDED FOR SHORTNESS OF BREATH OR WHEEZING. 8.5 Gram 10/24/2022 5:43 PM OB/GYN NURSE 3 Active sertraline (ZOLOFT) 100 mg tablet Take 2 Tablets (200 mg) by mouth daily. 180 Tablet 1 08/27/2024 3:15 PM OB/GYN NURSE 4 Active predniSONE (DELTASONE) 20 mg tablet Take 2 tablets by mouth once daily for 3 days, then take 1 tablet by mouth daily for 3 days 9 Tablet 06/05/2024 12:40 PM CDT 4 Active cyclobenzaprine (FLEXERIL) 5 mg Tablet Take 1 Tablet (5 mg) by mouth 3 times daily as needed for muscle spasm 30 Tablet 1 02/14/2025 3:22 PM CDT 4 Active sertraline (ZOLOFT) 100 mg tablet Take 2 Tablets (200 mg) by mouth daily. 20 Tablet 09/08/2024 9:46 AM OB/GYN NURSE 4 Active cholecalciferol 1,250 mcg (50,000 unit) Capsule Take 1 Capsule (50,000 Units) by mouth every 7 days. 12 Capsule 1 04/19/2025 5:00 PM CDT 5 Active amoxicillin-cla vulanate (AUGMENTIN) 875-125 mg tablet Take 1 Tablet by mouth every 12 hours for 7 days. 14 Tablet 06/28/2025 2:01 PM CDT 5 07/05/20 25 Active Encounters Date Type Department Care Team Description 05/18/2025 External Device Data [facility] ABSTRACTION Provider, Abstract 04/28/2025 External Device Data [facility] ABSTRACTION Provider, Abstract 04/27/2025 External Device Data [facility] ABSTRACTION Provider, Abstract from Last 3 Months Social History Tobacco Use Types Packs/Day Years Used Date Smoking Tobacco: Never Assessed Comments Unknown Sex and Gender Information Value Date Recorded Sex Assigned at Not on file Legal Sex Female 5:11 AM OB/GYN NURSE Gender Identity Not on file Sexual Orientation Not on file Plan of Treatment Health Maintenance Due Date Last Done Comments HEPATITIS B VACCINES (1 of 3 - 19+ 3-dose series) 1986 HPV/Cotest (21-29) 1988 CERVICAL CANCER SCREENING 1997 HPV/Cotest (30-65) 1997 PAP SMEAR 1997 COLORECTAL SCREENING 2012 Colorectal Cancer Screening 2012 FIT-DNA Q 3 years 2012 FIT/FOBT Q 1 year 2012 Flex Sig/CT Colonography Q 5 years 2012 DTAP/TDAP/TD VACCINES (3 - T d or Tdap) 09/30/2023 09/30/2013, 09/13/2013 INFLUENZA VACCINE (#1) 2025 2, 08/05/2021, 07/12/2020, Additional history exists BREAST CANCER SCREENING 08/27/2025 08/27/20 24, 05/22/2021, 05/22/2021, Additional history exists ZOSTER VACCINE Completed 09/24/2020, 07/12/2020 Procedures Procedure Name Priority Date/Time Associated Diagnosis Comments MAMMO 3D JOLENE SCREEN BILAT W OR WO CAD Routine 08/27/2024 8:38 AM OB/GYN NURSE Visit for screening mammogram from Last 3 Months or Most Recently Relevant to Health Maintenance Results * MAMMO 3D JOLENE SCREEN BILAT W OR WO CAD (08/27/2024 8:38 AM OB/GYN NURSE) Anatomical Region Laterality Modality Breast Bilateral Mammography 08/27/2024 8:38 AM OB/GYN NURSE Impressions 08/27/2024 8:49 AM OB/GYN NURSE IMPRESSION: NO MAMMOGRAPHIC EVIDENCE OF MALIGNANCY. OVERALL BIRADS CATEGORY:2 (benign findings). ROUTINE SCREENING MAMMOGRAPHY IS RECOMMENDED IN 12 MONTHS. A normal letter will be sent to patient. Narrative 08/27/2024 8:49 AM OB/GYN NURSE EXAM: MAMMO 3D JOLENE SCREEN BILAT W OR WO CAD STUDY DATE: 08/27/2024 8:38 AM CLINICAL INDICATION: 59 years old female presents for routine screening mammography. COMPARISON: Prior mammograms, the most recent dated 05/22/2021 PROCEDURE: CC and MLO digital mammographic views of the bilateral breasts are obtained. Computer Aided Detection (CAD) was utilized. Tomosynthesis was done with all views. FINDINGS: Breast Density: Scattered fibroglandular densities. Right breast: There is a stable nodular asymmetry in the right outer lower breast at anterior depth. There are no spiculated masses, suspicious microcalcifications or areas of architectural distortion in the right breast. Left breast: There are no spiculated masses, suspicious microcalcifications or areas of architectural distortion in the left breast. us Trini Carmona MD MAMMO ORDERABLES Final Resu lt from Last 3 Months or Most Recently Relevant to Health Maintenance Insurance [employer]INTERNAL) [facility] Care Teams Nurse Substance Abuse Relationship Specialty Start Date End Date Teresita Cronin MD [address] [place] [address] PCP - General 09/30/15
[2025-07-03 05:53] VITALS: BP 140/80; PULSE 72; RESP 14; TEMP 36.8; O2SAT 96
[2025-07-03 05:59] VITALS: O2SAT 95
--- NOTE | 2025-07-03 06:12 | ED.URI ---
HPI - URI/Sore Throat General Chief Complaint: Upper Respiratory Infection Stated Complaint: sore throat/ URI Time Seen by Provider: 07/03/25 05:48 History of Present Illness HPI Narrative: Patient has been having a runny nose for the past week, then started having a sore throat and cough, had a chest x-ray done a few days ago that was negative, she was just worried and wanted to make sure she was not getting worse. No shortness of breath. No chest pain, fevers or chills. Related Data Home Medications ?Medication ?Instructions ?Recorded ?Confirmed ?Last Taken ?Type famotidine 40 mg tablet 40 mg PO DAILY 08/06/20 06/28/25 Unknown History cetirizine 10 mg tablet (Zyrtec) 10 mg PO DAILY ALLERGIES 08/24/24 02/22/25 Unknown History sertraline 100 mg tablet 200 mg PO QHS PRN UNKNOWN 02/22/25 06/28/25 Unknown History cholecalciferol (vitamin D3) 1,250 06/28/25 Unknown History mcg (50,000 unit) capsule Allergies Allergy/AdvReac Type Severity Reaction Status Date / Time erythromycin base AdvReac Intermediate IRRITATES Verified 06/28/25 10:40 STOMACH Review of Systems Review of Systems: All systems reviewed & are unremarkable except as noted in HPI and below PMFSH Past Medical History Medical History Vitamin D deficiency Low back pain with right-sided sciatica Heart murmur Vertigo Seasonal allergies Hyperlipidemia GERD without esophagitis Endometriosis Migraine Reactive airway disease Anxiety Benign familial tremor Surgical History Surgical History History of tonsillectomy (~1982) History of D&C (~1998) for endometriosis History of (~10/2004) Ruptured tubal of left fallopian tube (~2001) Family History Family History Father Depression Family history of sleep apnea Cardiac pacemaker Grandparent Hypertension Cerebrovascular accident Family history of Parkinson's disease Family history of lung cancer Family history of dementia Family history of irritable bowel syndrome Mother Family history of arthritis Sibling Family history of irritable bowel syndrome Social History Social History Social History: Caffeine-coffee Smoking status: Never smoker Alcohol intake: current Drinks per week: 14 Alcohol use details: wine beer Substance use: never Substance use type: does not use Do You Feel Safe in your Home?: Yes Lack of Transportation: No Lack of Food: Sometimes True Current Housing: I Have Housing Concerned About Future Housing: No Difficulty Paying Gas/Electric Bills: No Difficulty Paying for Meds: No Currently Unemployed: No Education: Master's Degree or Higher Difficulty w/ Childcare or Family Care: No Living arrangements: with family Occupation/Education: occupation Gender identity (if verbalized by the patient): Female Agree to blood products: Yes Exam Narrative: EXAMINATION OF ORGAN SYSTEMS/BODY AREAS: Constitutional: Vital signs per nursing GENERAL:[No acute distress, non-toxic appearing.] HEAD: Normal with no signs of head trauma. EYES: EOMI, conjunctiva normal ENT: Slightly erythematous pharynx without any swelling, speaking with normal voice, moist mucous membranes, no trismus LUNGS: Nonlabored breathing. Clear to auscultation bilaterally. HEART: [Regular rate and rhythm] ABD: [Soft], [nontender to palpation] EXT: Normal range of motion SKIN: [No rashes or lesions.] NEURO: [Alert and oriented x 3. No gross focal sensory or strength deficits.] PSYCH: Normal affect Course Vital Signs Vital signs: Vital Signs Temperature 98.2 F 07/03/25 05:53 Pulse Rate 72 07/03/25 05:53 Respiratory Rate 14 07/03/25 05:53 Blood Pressure 140/80 07/03/25 05:53 Pulse Oximetry 96 07/03/25 05:53 Oxygen Delivery Room Air 07/03/25 05:53 Temperature 98.2 F 07/03/25 05:53 Pulse Rate 72 07/03/25 05:53 Respiratory Rate 14 07/03/25 05:53 Blood Pressure 140/80 07/03/25 05:53 Pulse Oximetry 95 07/03/25 05:59 Oxygen Delivery Room Air 07/03/25 05:59 MDM - URI/Sore Throat MDM Narrative Medical decision making narrative: ED COURSE AND MEDICAL DECISION MAKING: This 59-year-old female year old patient presents with symptoms most suggestive of viral upper respiratory tract infection. Lungs are clear bilaterally without any respiratory distress or accessory muscle use. Patient is treated symptomatically with Sudafed as she is already taking ibuprofen, Flonase, Zyrtec, Mucinex. Swabs obtained. With shared decision making with patient, declines chest x-ray at this time. On reevaluation, she continues to be very well-appearing, she is discharged home in stable condition with expectant management. Return precautions were provided. Procedures: Pulse oximetry interpretation - not hypoxic. Review of medical records. DISPOSITION: Discharged home in stable condition. IMPRESSION: Acute upper respiratory tract infection, likely viral. Lab Data Labs: Lab Results 07/03/25 Range/Units 06:04 Influenza A (RT-PCR) Negative (Negative) Influenza B (RT-PCR) Negative (Negative) RSV (RT-PCR) Negative (Negative) SARS-CoV-2 RNA (RT-PCR) Negative (Negative) Group A Strep (PCR) Not detected (Negative) Discharge Plan Discharge Clinical Impression: Upper respiratory infection Patient Disposition: Home Condition: Stable Instructions: Cold Symptoms (ED) Additional Instructions: Your flu, COVID, RSV, strep swabs were negative today. Please follow up with your doctor; continue the medications your taking, and you can also try the Sudafed. You can always return for any further issues. Patient Language: Qatari Prescriptions: New pseudoephedrine HCl 30 mg tablet 30 mg PO Q4-6H PRN (Reason: nasal congestion) Qty: 20 0RF Rx Instructions: DNExceed 4 doses/24h No Action famotidine 40 mg Tablet 40 mg PO DAILY cholecalciferol (vitamin D3) 1,250 mcg (50,000 unit) capsule amoxicillin-pot clavulanate 875-125 mg tablet 1 tablet PO Q12H 7 Days Qty: 14 0RF cetirizine [Zyrtec] 10 mg tablet 10 mg PO DAILY cyclobenzaprine 5 mg tablet 5 mg PO TID PRN (Reason: muscle spasm) Qty: 30 1RF sertraline 100 mg tablet 200 mg PO QHS PRN (Reason: UNKNOWN) cholecalciferol (vitamin D3) 1,250 mcg (50,000 unit) tablet 1,250 mcg PO WEEKLY Qty: 12 1RF atorvastatin 20 mg tablet 20 mg PO QHS Qty: 90 1RF fluticasone propionate 50 mcg/actuation spray,suspension See Rx Instructions .ROUTE .COMPLEX Qty: 29.7 1RF Dose Instruction: USE 1 SPRAY NASALLY DAILY Rx Instructions: USE 1 SPRAY NASALLY DAILY propranolol 10 mg tablet 10 mg PO BID Qty: 180 1RF Follow-up/Referrals: Heath Bernstein MD [Primary Care Provider, Family Practice] - 2 Days
[2025-07-03] MEDS: LORATADINE/PSEUDOEPHEDRINE (*CRX) 10/240 MG TABLET ER 24 HR 1 TAB PO (06:26)
[2025-07-03 06:36] LABS: Strep Group A RT-PCR NOT DETECTED (Negative)
[2025-07-03 06:48] LABS: Influenza A QL RT-PCR Negative (Negative); Influenza B QL RT-PCR Negative (Negative); RSV RNA, RT-PCR Negative (Negative); SARS-CoV-2 RNA PCR Negative (Negative)
[2025-07-03 07:00] VITALS: BP 138/76; PULSE 77; RESP 18; O2SAT 97
== END 2025-07-03 07:04 | disposition home or self-care (01) ==
PROVIDERS: Emergency Provider Emergency Medicine; PCP Family Medicine
DX: J06.9 Acute upper respiratory infection, unspecified (principal); Z20.822 Contact with and (suspected) exposure to COVID-19; J45.909 Unspecified asthma, uncomplicated; E55.9 Vitamin D deficiency, unspecified; E78.5 Hyperlipidemia, unspecified; N80.9 Endometriosis, unspecified; K21.9 Gastro-esophageal reflux disease without esophagitis; F41.9 Anxiety disorder, unspecified
CPT/HCPCS: 87637; 87651; 99283; A9270